=== PATIENT | female | born 1995 | race Caucasian/White ===

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

== ENCOUNTER 2017-01-02 19:03 | Emergency (ER) | payer OTHER ==
[~2017-01-02] VITALS: Ht 154.9 cm; Wt 49.9 kg
[~2017-01-02 19:03] MED LIST: AMOXICILLIN500 M1 PO; IBUPROFEN 600600 M1 PO
[2017-01-02] MEDS ORDERED: CENTANY30 GM TP (19:46)
[2017-01-02 19:49] VITALS: BP 102/47
== END 2017-01-02 20:13 | disposition home or self-care (01) ==
LOC: ER 19:03
DX: O9A.211 Injury, poisoning and certain other consequences of external causes complicating pregnancy, first trimester (principal); T22.212A Burn of second degree of left forearm, initial encounter; T31.0 Burns involving less than 10% of body surface; Z3A.11 11 weeks gestation of pregnancy; Z98.890 Other specified postprocedural states; X10.2XXA Contact with fats and cooking oils, initial encounter; Y93.G3 Activity, cooking and baking; Y92.89 Other specified places as the place of occurrence of the external cause; Y99.8 Other external cause status

== ENCOUNTER 2018-03-06 14:45 | Emergency (ER) | payer OTHER ==
[~2018-03-06] VITALS: Ht 154.9 cm; Wt 42.6 kg
[~2018-03-06 14:45] MED LIST changes: +CENTANY30 GM TP
[2018-03-06 16:29] VITALS: BP 105/74
[2018-03-06] MEDS ORDERED: ULTRAM 50MG TAB50 MG PO (16:29)
[2018-03-06] MEDS ORDERED: CYCLOBENZAPRINE5 MG PO (16:29)
== END 2018-03-06 16:37 | disposition home or self-care (01) ==
LOC: ER 14:45
DX: S39.012A Strain of muscle, fascia and tendon of lower back, initial encounter (principal); Z91.040 Latex allergy status; V49.19XA Passenger injured in collision with other motor vehicles in nontraffic accident, initial encounter; Y93.89 Activity, other specified; Y92.410 Unspecified street and highway as the place of occurrence of the external cause; Y99.8 Other external cause status